=== PATIENT | female | born 1980 | race Caucasian/White ===

== ENCOUNTER 2017-11-20 22:06 | Emergency (ER) | payer BC ==
[2017-11-21] MEDS: LIDOCAINE 1% (MDV) 10 ML INJ INFIL (01:26)
[2017-11-21] MEDS: LIDOCAINE 4% CR TOP (01:30)
[2017-11-21] MEDS: HYDROCODONE/APAP (5/325) TAB PO (02:03)
[2017-11-21] MEDS: KETOROLAC 60 MG INJ IM (03:40)
== END 2017-11-21 05:50 | disposition home or self-care (01) ==
LOC: FTE 22:06
DX: K64.5 Perianal venous thrombosis (principal)
CPT/HCPCS: 46083; 93922; 96372; 99285-25

== ENCOUNTER 2018-10-26 22:36 | Emergency (ER) | payer BC ==
[2018-10-27] MEDS: METOCLOPRAMIDE 10 MG INJ IV (04:15)
[2018-10-27] MEDS: METHYLPREDNISOLONE 125 MG INJ IV (04:15)
[2018-10-27] MEDS: DIPHENHYDRAMINE 50 MG INJ IV (04:15)
[2018-10-27] MEDS: SOD CHLORIDE 0.9% 1,000 ML IV (04:16)
[2018-10-27] MEDS: KETOROLAC 30 MG INJ IV (04:19)
[2018-10-27] MEDS: HYDROCODONE/APAP (5/325) TAB PO (06:38)
== END 2018-10-27 06:44 | disposition home or self-care (01) ==
LOC: FTE 22:36
DX: R51 Headache (principal)
CPT/HCPCS: 36415; 81025; 96361; 96374; 96375; 99284-25

== ENCOUNTER 2018-10-31 13:41 | Emergency (ER) | payer BC ==
[2018-10-31] MEDS: HYDROCODONE/APAP (5/325) TAB PO (14:55)
[2018-10-31 16:07] LABS: ADD MAN DIFF? NO
[2018-10-31 16:09] LABS: BASOPHIL # 0.1 10^3/ul (0.0-0.1); BASOPHILS % 0.7 % (0.0-2.0); EOSINOPHILS # 0.1 10^3/ul (0.0-0.5); EOSINOPHILS % 1.5 % (0.0-7.0); HEMATOCRIT 40.1 % (37.0-47.0); LYMPHOCYTES # 2.4 10^3/ul (0.8-2.9); MEAN CORPUSCULAR HGB CONC 32.4 g/dl (32.0-37.0); MEAN CORPUSCULAR VOLUME 92.6 fl (82.0-101.0); MONOCYTE # 0.6 10^3/ul (0.3-0.9); MONOCYTES % 8.7 % (0.0-11.0); NEUTROPHIL # 3.7 10^3/ul (1.6-7.5); PLATELET COUNT 224 10^3/UL (140-415); RED BLOOD COUNT 4.33 10^6/ul (4.20-5.40); RED CELL DISTRIBUTION WIDTH 13.3 % (11.5-14.5)
[2018-10-31 16:09] LABS: WHITE BLOOD COUNT 6.9 10^3/ul (4.8-10.8)
[2018-10-31 16:29] LABS: ALANINE AMINOTRANSFERASE 12 IU/L (13-69); ALBUMIN 4.3 g/dl (3.3-4.9); ALBUMIN/GLOBULIN RATIO 1.59; ALKALINE PHOSPHATASE 71 IU/L (42-121); ANION GAP 11 (5-13); ASPARTATE AMINO TRANSFERASE 17 IU/L (15-46); BILIRUBIN,INDIRECT 0.5 mg/dl (0-1.1); BILIRUBIN,TOTAL 0.5 mg/dl (0.2-1.3); BLOOD UREA NITROGEN 11 mg/dl (7-20); CALCIUM 9.1 mg/dl (8.4-10.2); CARBON DIOXIDE 27 mmol/L (21-31); CHLORIDE 101 mmol/L (97-110); CREATININE 0.75 mg/dl (0.44-1.00); Estimated GFR > 60 mL/min (>60); GLUCOSE 89 mg/dl (70-220); POTASSIUM 3.8 mmol/L (3.5-5.1); SODIUM 139 mmol/L (135-144)
[2018-10-31] MEDS: IOHEXOL 100 ML (16:36)
[2018-10-31] MEDS: SOD CHLORIDE 0.9% 100 ML (17:36)
[2018-10-31] MEDS ORDERED: KETOROLAC 60 MG INJ IM (19:05)
[2018-10-31] MEDS: KETOROLAC 30 MG INJ IV (19:25)
[2018-10-31] MEDS ORDERED: LIDOCAINE 1% (MDV) 20 ML INJ (22:39)
[2018-10-31 23:13] LABS: CSF RBC 0 /uL (0-0); CSF WBC 1 /cmm (0-10)
[2018-10-31 23:15] LABS: CSF RBC 0 /uL (0-0); CSF WBC 1 /cmm (0-10)
[2018-10-31 23:16] LABS: GLUCOSE,CSF 46 mg/dl (50-80)
[2018-10-31 23:16] LABS: TOTAL PROTEIN,CSF 34 mg/dl (12-60)
[2018-10-31 23:21] LABS: CSF CLARITY CLEAR; CSF#TUBES REC'D 4
[2018-10-31 23:21] LABS: CSF COLOR COLORLESS
[2018-10-31 23:22] LABS: CSF CLARITY CLEAR; CSF COLOR COLORLESS; CSF#TUBE COUNT TUBE#1; CSF#TUBE COUNT TUBE#4; CSF#TUBES REC'D 4
== END 2018-10-31 23:51 | disposition home or self-care (01) ==
LOC: E/R 23:51 → FTE 13:41 → E/R 23:51
DX: R51 Headache (principal)
CPT/HCPCS: 36415; 70450; 70496; 70498; 80053; 81025; 82945; 84157; 85025; 89051; 93005; 96374; 99285-25